=== PATIENT | male | born 1955 | race African-American/Black ===

== ENCOUNTER 2023-03-23 13:40 | Emergency (ER) | payer MEDICARE, MEDICAID ==
[~2023-03-23] VITALS: Ht 177.8 cm; Wt 97.0 kg
[2023-03-23 13:47] VITALS: BP 154/89; PULSE 91; RESP 20; TEMP 98.2; O2SAT 97
[2023-03-23] MEDS ORDERED: LORAZEPAM 1MG TABLET PO ONE (16:00)
[2023-03-23] MEDS ORDERED: DIPHENHYDRAMINE 50MG CAPSULE PO ONE (16:00)
[2023-03-23] MEDS ORDERED: DIPHENHYDRAMINE 25MG CAPSULE PO NR (16:15)
[2023-03-23] MEDS ORDERED: ASPIRIN 81MG TABLET PO ONE (17:30)
[2023-03-23] MEDS ORDERED: CLOPIDOGREL 75MG TABLET PO ONE (17:30)
== END 2023-03-23 18:06 | disposition left against medical advice (07) ==
LOC: ER 14:11
DX: R51.9 Headache, unspecified (principal); I10 Essential (primary) hypertension
CPT/HCPCS: 99284; 70450; 70486; 93005; Q0163

== ENCOUNTER 2025-04-25 16:22 | Emergency (ER) | payer MEDICARE, MEDICAID ==
[~2025-04-25] VITALS: Ht 177.8 cm; Wt 89.0 kg
[~2025-04-25 16:22] MED LIST: APIX5TAB PO; ASPI-1497 PO; ATOR40TA70 PO; LOSA100T33 PO
[2025-04-25 16:29] VITALS: O2SAT 98
[2025-04-25] MEDS ORDERED: TRAM50TA3 MT (18:32)
[2025-04-25] MEDS ORDERED: AMOX1TAB16 MT (18:32)
[2025-04-25 19:04] VITALS: BP 136/82; PULSE 104; RESP 20; TEMP 36.6; O2SAT 98
== END 2025-04-25 19:19 | disposition home or self-care (01) ==
LOC: ER 16:22
DX: K04.7 Periapical abscess without sinus (principal); K02.9 Dental caries, unspecified; I10 Essential (primary) hypertension; Z79.01 Long term (current) use of anticoagulants; Z79.82 Long term (current) use of aspirin; Z79.899 Other long term (current) drug therapy; Z86.73 Personal history of transient ischemic attack (TIA), and cerebral infarction without residual deficits
CPT/HCPCS: 99283